=== PATIENT | male | born 1990 | race Caucasian/White ===

== ENCOUNTER 2018-07-23 10:45 | Outpatient (RCR) | payer BC | END 2018-08-07 | disposition home or self-care (01) | LOC: WCC 10:45 | DX: L97.812 Non-pressure chronic ulcer of other part of right lower leg with fat layer exposed (principal); M79.81 Nontraumatic hematoma of soft tissue; L97.111 Non-pressure chronic ulcer of right thigh limited to breakdown of skin; L03.115 Cellulitis of right lower limb | CPT/HCPCS: 11042; 11045; 87070; 87205; G0463 ==

== ENCOUNTER 2018-08-13 10:12 | Outpatient (RCR) | payer BC | END 2018-09-07 | disposition home or self-care (01) | LOC: WCC 10:12 | DX: L97.812 Non-pressure chronic ulcer of other part of right lower leg with fat layer exposed (principal); M79.81 Nontraumatic hematoma of soft tissue; L97.111 Non-pressure chronic ulcer of right thigh limited to breakdown of skin; L03.115 Cellulitis of right lower limb | CPT/HCPCS: 11042; G0463 ==